=== PATIENT | male | born 1995 | race Caucasian/White ===

== ENCOUNTER → 2023-10-06 | Outpatient (CLI) | payer SELFPAY ==
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
== END | disposition home or self-care (01) ==
PROVIDERS: Referring Provider Chiropractor Orthopedic; Visit Provider Chiropractor Orthopedic
DX: Z87.81 Personal history of (healed) traumatic fracture (principal)
CPT/HCPCS: 73030